=== PATIENT | female | born 1940 | race Caucasian/White ===

== ENCOUNTER 2021-11-29 06:28 | Day surgery (SDC) | payer OTHER ==
[~2021-11-29] VITALS: Ht 167.6 cm; Wt 81.2 kg
[2021-11-29] MEDS ORDERED: SIMETHICONE 40 MG/0.6 ML ML ONE (07:14)
[2021-11-29] MEDS: fentaNYL CITRATE/PF 100 MCG/2 ML AMP ONE ×3 (07:41→07:49)
[2021-11-29] MEDS: MIDAZOLAM HCL 5 MG/5 ML VIAL ONE ×4 (07:41→07:53)
[2021-11-29 11:15] VITALS: BP_SYST 150
== END 2021-11-29 09:15 | disposition home or self-care (01) ==
LOC: SDS 06:28 → SMU 06:30 → SDS 09:15
PROVIDERS: ATTEND Internal Medicine
DX: D50.9 Iron deficiency anemia, unspecified (principal); K57.30 Diverticulosis of large intestine without perforation or abscess without bleeding; K64.8 Other hemorrhoids; M79.7 Fibromyalgia; K21.9 Gastro-esophageal reflux disease without esophagitis; K25.9 Gastric ulcer, unspecified as acute or chronic, without hemorrhage or perforation; Z20.822 Contact with and (suspected) exposure to COVID-19; Z79.899 Other long term (current) drug therapy
CPT/HCPCS: 36415 ×2; 45380; 45381; 87426; 87635; 88305; 99152; 99153; G0378; J2250; J3010; U0003